=== PATIENT | female | born 1990 ===

== ENCOUNTER 2024-09-04 11:28 | Emergency (ER) | payer OTHER ==
[~2024-09-04] VITALS: Ht 162.6 cm; Wt 78.0 kg
[2024-09-04 12:28] LABS: BASO % 0.2 % (0.1-1.2); EOS # 0.08 (0.04-0.54); EOS % 0.6 % (0.7-7.0); LYMPH # 1.27 (1.18-3.74); LYMPH % 9.5 % (19.3-53.1); MEAN PLATELET VOLUME 9.40 fl (9.4-12.4); MONO # 0.73 (0.24-0.82); MONO % 5.5 % (4.7-12.5); NEUT # 11.18 (1.56-6.13); NEUT % 83.8 % (34.0-71.1); RED CELL DISTRIBUTION WIDTH 11.8 % (11.6-14.4)
[2024-09-04 12:54] LABS: ALT/SGPT 19.0 U/L (12-78); AST/SGOT 10.0 U/L (15-37); BILIRUBIN TOTAL 0.6 mg/dL (0.3-1.2); BUN CREA RATIO 20.0 (7.0-25.0); CREATININE SERUM 1.08 mg/dL (0.55-1.02); GFR 57.4; GLOBULINA 3.6 G/DL (2.4-3.5); GLUCOSE FASTING 94.0 mg/dL (65-100); OSMOLALITY SERUM 286.0 MOSM/KG (275-295)
== END 2024-09-05 08:06 | disposition home or self-care (01) ==
LOC: ER 11:28
PROVIDERS: General Practice
DX: T78.49XA Other allergy, initial encounter (principal); X58.XXXA Exposure to other specified factors, initial encounter; Z91.013 Allergy to seafood